=== PATIENT | female | born 1985 | race Caucasian/White ===

== ENCOUNTER 2016-04-07 19:13 | Emergency (ER) | payer OTHER ==
--- NOTE | 2016-04-07 20:27 | ED CLINICAL REPORT ---
Clinical Report - Physicians/Mid Levels [facility] [address] [place] [address] 04/07/2016 19:16 Patient: JANY ANDINO Time Seen: 2016. Arrived- By private vehicle. Historian- patient. HISTORY OF PRESENT ILLNESS Chief Complaint: COUGH. This started just prior to arrival and is still present. The illness is described as mild. The patient has had a cough, a sore throat and chills. No chest discomfort, nasal congestion or discharge or sinus drainage. (cough congestion/ chills. No back pain, no vag bleeding.17 week iup, with ob care, and prior confirmed us . Has had arthalgia/ myalgia/ weakness. No sick contacts, no recent travel. No hemoptysis). Additional history - The patient has had contact with a sick individual. REVIEW OF SYSTEMS No headache, vomiting, diarrhea, hay fever or skin rash. All systems otherwise negative, except as recorded above. SOCIAL HISTORY Never smoker. No alcohol use. ADDITIONAL NOTES The nursing notes have been reviewed. PHYSICAL EXAM Vital Signs: 04/07/2016 20:21 Temp: 98.1 F. 04/07/2016 19:24 BP: 128/72. HR: 88. RR: 20. O2 saturation: 100%. Temp: 89.1 F. Appearance: Alert. ENT: Ears normal. Nose normal. Pharynx normal. Uvula midline. No peritonsillar mass. CVS: Normal heart rate and rhythm. Heart sounds normal. No extra heart sounds. Respiratory: No respiratory distress. Breath sounds normal. No accessory muscle use or retractions. Abdomen: ( uterus to umbillicus). Skin: Skin warm. Normal skin color. PROGRESS AND PROCEDURES Course of Care: ( heart tones:155). Here in the ER patient is afebrile, normal cardiac, lungs clear, 24 hours of symptoms, rapid influenza negative, suspected viral etiology patient to have close follow-up with her primary care provider. No le swelling or edema, pe less likely. 04/07/2016 20:59 BP: 128/70. HR: 95. RR: 18. O2 saturation: 100%. Temp: 98.6 F. Patient is stable. Physical exam findings are improved. Symptoms better. Patient/family counseled. Differential Diagnosis: I considered viral bronchitis, viral pneumonia, bacterial bronchitis and bacterial pneumonia as a possible cause of cough in this patient. This is a partial list of diagnoses considered. Disposition: Discharged. CLINICAL IMPRESSION Acute upper respiratory infection. (2nd trimester). INSTRUCTIONS Rest. Drink plenty of fluids. OTC Medications: Take OTC medications according to label instructions. Available over the counter. Acetaminophen (available over the counter): take according to label instructions. Motrin (available over the counter): take according to label instructions. Follow-up: Follow up with your doctor in three days. (Electronically signed by Anay Gerber P.A.-C 04/07/2016 21:08)
--- NOTE | 2016-04-07 20:27 | ED CLINICAL REPORT ---
Clinical Report - Physicians/Mid Levels [facility] [address] [place] [address] 04/07/2016 19:16 Patient: JANY ANDINO Time Seen: 2016. Arrived- By private vehicle. Historian- patient. HISTORY OF PRESENT ILLNESS Chief Complaint: COUGH. This started just prior to arrival and is still present. The illness is described as mild. The patient has had a cough, a sore throat and chills. No chest discomfort, nasal congestion or discharge or sinus drainage. (cough congestion/ chills. No back pain, no vag bleeding.17 week iup, with ob care, and prior confirmed us . Has had arthalgia/ myalgia/ weakness. No sick contacts, no recent travel. No hemoptysis). Additional history - The patient has had contact with a sick individual. REVIEW OF SYSTEMS No headache, vomiting, diarrhea, hay fever or skin rash. All systems otherwise negative, except as recorded above. SOCIAL HISTORY Never smoker. No alcohol use. ADDITIONAL NOTES The nursing notes have been reviewed. PHYSICAL EXAM Vital Signs: 04/07/2016 20:21 Temp: 98.1 F. 04/07/2016 19:24 BP: 128/72. HR: 88. RR: 20. O2 saturation: 100%. Temp: 89.1 F. Appearance: Alert. ENT: Ears normal. Nose normal. Pharynx normal. Uvula midline. No peritonsillar mass. CVS: Normal heart rate and rhythm. Heart sounds normal. No extra heart sounds. Respiratory: No respiratory distress. Breath sounds normal. No accessory muscle use or retractions. Abdomen: ( uterus to umbillicus). Skin: Skin warm. Normal skin color. PROGRESS AND PROCEDURES Course of Care: ( heart tones:155). Here in the ER patient is afebrile, normal cardiac, lungs clear, 24 hours of symptoms, rapid influenza negative, suspected viral etiology patient to have close follow-up with her primary care provider. No le swelling or edema, pe less likely. 04/07/2016 20:59 BP: 128/70. HR: 95. RR: 18. O2 saturation: 100%. Temp: 98.6 F. Patient is stable. Physical exam findings are improved. Symptoms better. Patient/family counseled. Differential Diagnosis: I considered viral bronchitis, viral pneumonia, bacterial bronchitis and bacterial pneumonia as a possible cause of cough in this patient. This is a partial list of diagnoses considered. Disposition: Discharged. CLINICAL IMPRESSION Acute upper respiratory infection. (2nd trimester). INSTRUCTIONS Rest. Drink plenty of fluids. OTC Medications: Take OTC medications according to label instructions. Available over the counter. Acetaminophen (available over the counter): take according to label instructions. Motrin (available over the counter): take according to label instructions. Follow-up: Follow up with your doctor in three days. (Electronically signed by Anay Gerber P.A.-C 04/07/2016 21:08)
--- NOTE | 2016-04-07 20:27 | ED NURSING NOTES ---
Clinical Report - Nurses [facility] [address] [place] [address] 04/07/2016 19:16 Patient: JANY ANDINO TRIAGE Triage time 19:21. Acuity: LEVEL 4. Chief Complaint: FEVER, SORE THROAT and BODY ACHES and (at home temp was 100.0). Alert. No acute distress. SEPSIS SCREEN: Sepsis Screen. Negative (no infection suspected/documented). ANGELA COMA SCORE: Peerless Coma Scale: 15- eyes open spontaneously (4); best verbal response- oriented x 4 (5); best motor response- obeys commands (6). --19:27 Carolyn Costello R.N. 19:24 04/07/16. BP: 128/72. HR: 88. RR: 20. O2 saturation: 100%. Temp: 89.1 F. Pain level now 5/10. --19:27 Carolyn Costello R.N. ( heart tones:155). --19:34 Carolyn Costello R.N. 20:20 04/07/16. Temp: 98.1 F. --20:21 Carolyn Costello R.N. Weight: 86.1 kg stated. Height/Length: 62 inches Per Patient. BMI: 34.8. --19:23 Carolyn Costello R.N. Medications MetFORMIN HCl Oral (Tablet 1000 mg), 2x a day. --19:25 Carolyn Costello R.N. Oral. --19:25 Carolyn Costello R.N. Allergies morphine.(rash) --19:25 Carolyn Costello R.N. History Arrived by private vehicle. Historian: patient. Unaccompanied. Primary physician (Dr. Magaña). This started last night. 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 PAST MEDICAL HX: Immunizations: up-to-date and seasonal influenza: first dose. Confirmed . In 1st trimester. confirmed with sonogram. Has had care by upfitter. G 3. P 2. SOCIAL HX: Never smoker. No alcohol use or drug use. No recent travel. No infectious disease exposure. No known contact with a sick individual. ABUSE ASSESSMENT: Abuse assessment: The patient was asked "Do you feel safe in your home?" and "Has anyone hurt you or threatened to hurt you?". No report of abuse. SELF HARM ASSESSMENT: A self harm assessment was performed. The patient answered "no" to the question "Do you have thoughts of harming or killing yourself?" and "Have you recently had thoughts about harming or killing others?". NUTRITIONAL RISK ASSESSMENT: The nutritional risk assessment revealed no deficiencies. FUNCTIONAL ASSESSMENT: Functional assessment: no impairments noted. LEARNING NEEDS ASSESSMENT: The learning needs assessment revealed no barriers. --19:27 Carolyn Costello R.N. PROBLEMS: Diabetes Mellitus. Vaginal Bleeding. Abnormal Test. Transfusion. Cervical hyperplasia. Kidney Infection. Anemia. Endometriosis. --19:26 Carolyn Costello R.N. ADDITIONAL SURGERIES: Biopsy for adnormal pap. . --19:26 Carolyn Costello R.N. Interventions ID band on patient. Ambulatory. --19:27 Carolyn Costello R.N. PHYSICAL ASSESSMENT Ambulatory to room. GENERAL / NEURO / PSYCH: Alert. Appears in no acute distress. HEENT: Mucous membranes are pink. RESPIRATORY: Respirations not labored. CVS: Capillary refill less than 2 seconds. Pulses within normal limits. SKIN: Skin intact. Skin is warm and dry. --19:27 Carolyn Costello R.N. NURSING PROGRESS NOTES Head of bed elevated. Two patient identifiers checked. Call light placed in reach. Side rails up x 2. Bed placed in lowest position. Brakes of bed on. Patient ready for evaluation- chart flagged. --19:28 Carolyn Costello R.N. 20:23 04/07/16. BP: 128/69. HR: 91. RR: 15. O2 saturation: 99% on room air. Temp: 98.8 F (oral). Baeza-Rm pain scale: 4/10. --20:24 Estefanía Fabian R.N. DISPOSITION / DISCHARGE Condition at departure: stable. No learning barriers present. Discharge instructions provided and reviewed with the patient. Reviewed referral to family practice for followup. Patient verbalized understanding. Written instructions provided in Telugu. The patient was discharged home and unaccompanied at time of discharge. She left the Emergency Department ambulatory and via private vehicle. Patient driving. Medication list reviewed and validated. --21:00 Carolyn Costello R.N. 20:59 04/07/16. BP: 128/70. HR: 95. RR: 18. O2 saturation: 100%. Temp: 98.6 F. Pain level now 0/10. --21:00 Carolyn Costello R.N. Departure time: 21:00. --21:00 Carolyn Costello R.N. Locked/Released at 04/07/2016 21:01 by Carolyn Costello R.N.
--- NOTE | 2016-04-07 20:27 | ED NURSING NOTES ---
Clinical Report - Nurses [facility] [address] [place] [address] 04/07/2016 19:16 Patient: JANY ANDINO TRIAGE Triage time 19:21. Acuity: LEVEL 4. Chief Complaint: FEVER, SORE THROAT and BODY ACHES and (at home temp was 100.0). Alert. No acute distress. SEPSIS SCREEN: Sepsis Screen. Negative (no infection suspected/documented). ANGELA COMA SCORE: [place] Coma Scale: 15- eyes open spontaneously (4); best verbal response- oriented x 4 (5); best motor response- obeys commands (6). --19:27 Carolyn Costello R.N. 19:24 04/07/16. BP: 128/72. HR: 88. RR: 20. O2 saturation: 100%. Temp: 89.1 F. Pain level now 5/10. --19:27 Carolyn Costello R.N. ( heart tones:155). --19:34 Carolyn Costello R.N. 20:20 04/07/16. Temp: 98.1 F. --20:21 Carolyn Costello R.N. Weight: 86.1 kg stated. Height/Length: 62 inches Per Patient. BMI: 34.8. --19:23 Carolyn Costello R.N. Medications MetFORMIN HCl Oral (Tablet 1000 mg), 2x a day. --19:25 Carolyn Costello R.N. Oral. --19:25 Carolyn Costello R.N. Allergies morphine.(rash) --19:25 Carolyn Costello R.N. History Arrived by private vehicle. Historian: patient. Unaccompanied. Primary physician (Dr. Magaña). This started last night. 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 PAST MEDICAL HX: Immunizations: up-to-date and seasonal influenza: first dose. Confirmed . In 1st trimester. confirmed with sonogram. Has had care by waist presser. G 3. P 2. SOCIAL HX: Never smoker. No alcohol use or drug use. No recent travel. No infectious disease exposure. No known contact with a sick individual. ABUSE ASSESSMENT: Abuse assessment: The patient was asked "Do you feel safe in your home?" and "Has anyone hurt you or threatened to hurt you?". No report of abuse. SELF HARM ASSESSMENT: A self harm assessment was performed. The patient answered "no" to the question "Do you have thoughts of harming or killing yourself?" and "Have you recently had thoughts about harming or killing others?". NUTRITIONAL RISK ASSESSMENT: The nutritional risk assessment revealed no deficiencies. FUNCTIONAL ASSESSMENT: Functional assessment: no impairments noted. LEARNING NEEDS ASSESSMENT: The learning needs assessment revealed no barriers. --19:27 Carolyn Costello R.N. PROBLEMS: Diabetes Mellitus. Vaginal Bleeding. Abnormal Test. Transfusion. Cervical hyperplasia. Kidney Infection. Anemia. Endometriosis. --19:26 Carolyn Costello R.N. ADDITIONAL SURGERIES: Biopsy for adnormal pap. . --19:26 Carolyn Costello R.N. Interventions ID band on patient. Ambulatory. --19:27 Carolyn Costello R.N. PHYSICAL ASSESSMENT Ambulatory to room. GENERAL / NEURO / PSYCH: Alert. Appears in no acute distress. HEENT: Mucous membranes are pink. RESPIRATORY: Respirations not labored. CVS: Capillary refill less than 2 seconds. Pulses within normal limits. SKIN: Skin intact. Skin is warm and dry. --19:27 Carolyn Costello R.N. NURSING PROGRESS NOTES Head of bed elevated. Two patient identifiers checked. Call light placed in reach. Side rails up x 2. Bed placed in lowest position. Brakes of bed on. Patient ready for evaluation- chart flagged. --19:28 Carolyn Costello R.N. 20:23 04/07/16. BP: 128/69. HR: 91. RR: 15. O2 saturation: 99% on room air. Temp: 98.8 F (oral). Baeza-Rm pain scale: 4/10. --20:24 Estefanía Fabian R.N. DISPOSITION / DISCHARGE Condition at departure: stable. No learning barriers present. Discharge instructions provided and reviewed with the patient. Reviewed referral to family practice for followup. Patient verbalized understanding. Written instructions provided in Hungarian. The patient was discharged home and unaccompanied at time of discharge. She left the Emergency Department ambulatory and via private vehicle. Patient driving. Medication list reviewed and validated. --21:00 Carolyn Costello R.N. 20:59 04/07/16. BP: 128/70. HR: 95. RR: 18. O2 saturation: 100%. Temp: 98.6 F. Pain level now 0/10. --21:00 Carolyn Costello R.N. Departure time: 21:00. --21:00 Carolyn Costello R.N. Locked/Released at 04/07/2016 21:01 by Carolyn Costello R.N.
--- NOTE | 2016-04-07 20:27 | ED ORDER SUMMARY ---
..... Patient: JANY ANDINO OrderSheet [facility] VisitID: [id number] [place] [address] 31y, F Registration Date/Time: 04/07/2016 ORDER SHEET Weight: 86.1 kg (stated) Allergies: morphine GENERAL ORDERS: Heart Tones (19:28 04/07/2016 Ellen Jimenes per protocol) (19:34 Ellen Peter.Adan) Rapid Influenza Screen (Nasal Pharyngeal) (n) Urgent (19:33 04/07/2016 Lakhwinder P.A.-C) (k 19:47 Flavia) (20:59 Ellen Peter.Briseida.) MEDICATION ORDERS: IV FLUIDS: ORDER SHEET NOTES: [Electronically signed by Carolyn Costello R.N. (21:04/07/2016)] [Electronically signed by Anay Gerber P.A.-C (21:08 04/07/2016)] [Electronically locked/signed by Carolyn Costello R.N. (21:04/07/2016)]
--- NOTE | 2016-04-07 20:27 | ED ORDER SUMMARY ---
..... Patient: JANY ANDINO OrderSheet [facility] VisitID: [id number] [place] [address] 31y, F Registration Date/Time: 04/07/2016 ORDER SHEET Weight: 86.1 kg (stated) Allergies: morphine GENERAL ORDERS: Heart Tones (19:28 04/07/2016 Ellen Jimenes per protocol) (19:34 Ellen Peter.Adan) Rapid Influenza Screen (Nasal Pharyngeal) (n) Urgent (19:33 04/07/2016 Lakhwinder P.A.-C) (k 19:47 Flavia) (20:59 Ellen Peter.Briseida.) MEDICATION ORDERS: IV FLUIDS: ORDER SHEET NOTES: [Electronically signed by Carolyn Costello R.N. (21:04/07/2016)] [Electronically signed by Anay Gerber P.A.-C (21:08 04/07/2016)] [Electronically locked/signed by Carolyn Costello R.N. (21:04/07/2016)]
--- NOTE | 2016-04-07 21:08 | ED DISCHARGE INSTRUCTIONS ---
Patient: JANY ANDINO General Instructions [facility] VisitID: [id number] [place] [address] 31y, F Registration Date/Time: 04/07/2016 Acute upper respiratory infection. (2nd trimester). INSTRUCTIONS Rest. Drink plenty of fluids. OTC Medications: Take OTC medications according to label instructions. Available over the counter. Acetaminophen (available over the counter): take according to label instructions. Motrin (available over the counter): take according to label instructions. Follow-up: Follow up with your doctor in three days. ADDITIONAL INFORMATION Viral Respiratory Illness [Adult] You have an Upper Respiratory Illness (URI) caused by a virus. This illness is contagious during the first few days. It is spread through the air by coughing and sneezing or by direct contact (touching the sick person and then touching your own eyes, nose or mouth). Most viral illnesses go away within 7-10 days with rest and simple home remedies. Sometimes, the illness may last for several weeks. Antibiotics will not kill a virus and are generally not prescribed for this condition. Home Care: 1) If symptoms are severe, rest at home for the first 2-3 days. When you resume activity, don't let yourself get too tired. 2) Avoid being exposed to cigarette smoke (yours or others). 3) Tylenol (acetaminophen) or ibuprofen (Advil, Motrin) will help fever, muscle aching and headache. (Persons under 18 with fever should not take aspirin since this may cause liver damage.) 4) Your appetite may be poor, so a light diet is fine. Avoid dehydration by drinking 6-8 glasses of fluids per day (water, soft drinks, juices, tea, soup). Extra fluids will help loosen secretions in the nose and lungs. 5) [id number] cold medicines will not shorten the length of time youre sick, but they may be helpful for the following symptoms: cough (Robitussin DM); sore throat (Chloraseptic lozenges or spray); nasal and sinus congestion (Actifed, Sudafed, Chlortrimeton). Follow Up with your doctor or as advised if you dont improve over the next week. Get Prompt Medical Attention if any of the following occur: -- Cough with lots of colored sputum (mucus) or blood in your sputum -- Chest pain, shortness of breath, wheezing or have trouble breathing -- Severe headache; face, neck or ear pain -- Fever over 100.4 F (38.0 C) for more than three days -- You cant swallow due to throat pain You have been given the following additional information: Uri, Viral, No Abx (Adult) Rest. (Electronically signed by Anay Gerber P.A.-C 04/07/2016 21:08)
--- NOTE | 2016-04-07 21:08 | ED MED RECONCILIATION SUMMARY ---
Patient: JANY ANDINO Medication Reconciliation Report [facility] VisitID: [id number] [address] [place] [address] 31y, F Registration Date/Time: 04/07/2016 Weight: 86.1 kg Height/Length: 62 in. BMI: 34.8 ALLERGIES: morphine The patient's Home Medications are listed below: THE FOLLOWING MEDICATIONS NEED TO BE RECONCILED: MetFORMIN HCl Oral (1000 mg), 2x a day Oral The source(s) of the original Home Medication information: Not obtained. The following Medications were given to the patient in the Emergency Department: None. The following Medications were prescribed to the patient: Take OTC medications according to label instructions. Available over the counter. -- Anay Gerber, P.A.-C Acetaminophen (available over the counter): take according to label instructions. -- Anay Gerber, P.A.-C Motrin (available over the counter): take according to label instructions. -- Anay Gerber, P.A.-C
--- NOTE | 2016-04-07 21:08 | ED MAR SUMMARY ---
..... Medication Administration Record [facility] [address] [place], [place] [id number] Patient: JANY ANDINO Visit ID: [id number] 31y, F Weight: 86.1 kg Height/Length: 62 in BMI: 34.8 ALLERGIES: morphine
--- NOTE | 2016-04-07 21:08 | ED MED RECONCILIATION SUMMARY ---
Patient: JANY ANDINO Medication Reconciliation Report [facility] VisitID: [id number] [address] [place] [address] 31y, F Registration Date/Time: 04/07/2016 Weight: 86.1 kg Height/Length: 62 in. BMI: 34.8 ALLERGIES: morphine The patient's Home Medications are listed below: THE FOLLOWING MEDICATIONS NEED TO BE RECONCILED: MetFORMIN HCl Oral (1000 mg), 2x a day Oral The source(s) of the original Home Medication information: Not obtained. The following Medications were given to the patient in the Emergency Department: None. The following Medications were prescribed to the patient: Take OTC medications according to label instructions. Available over the counter. -- Anay Gerber, P.A.-C Acetaminophen (available over the counter): take according to label instructions. -- Anay Gerber, P.A.-C Motrin (available over the counter): take according to label instructions. -- Anay Gerber, P.A.-C
--- NOTE | 2016-04-07 21:08 | ED MAR SUMMARY ---
..... Medication Administration Record [address] [place], [place] [id number] Patient: JANY ANDINO Visit ID: [id number] 31y, F Weight: 86.1 kg Height/Length: 62 in BMI: 34.8 ALLERGIES: morphine
== END 2016-04-07 21:00 | disposition home or self-care (01) ==
LOC: ED SRH 19:13
DX: O99.512 Diseases of the respiratory system complicating pregnancy, second trimester (principal); O24.911 Unspecified diabetes mellitus in pregnancy, first trimester; Z79.84 Long term (current) use of oral hypoglycemic drugs; Z3A.17 17 weeks gestation of pregnancy; Z88.5 Allergy status to narcotic agent
CPT/HCPCS: 91400